=== PATIENT | male | born 1970 | race Caucasian/White ===

== ENCOUNTER 2022-07-16 15:17 | Emergency (ER) | payer OTHER ==
[~2022-07-16] VITALS: Ht 175.3 cm; Wt 97.5 kg
--- OUTSIDE RECORDS SUMMARY | 2022-07-16 15:31 | XMS ---
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 E.D. VISIT COUNT ([address] [facility] 1 [facility] [place] [facility]. TOTAL 4 NOTE: Visits indicate total known visits. ED/UCC VISIT TRACKING (12 MO.) 07/16/2022 15:20 [facility] TYPE: Emergency COMPLAINT: - LT LEG PAIN 04/18/2022 16:59 [facility] [place] TYPE: Emergency DIAGNOSES: - Back pain - Strain of muscle and tendon of back wall of thorax, initial encounter 02/12/2022 11:20 [facility] TYPE: Emergency DIAGNOSES: - Flue like symptoms, - Flu Symptoms - Flue like symptoms, Covid test request - Nicotine dependence, other tobacco product, uncomplicated - COVID-19 10/05/2021 14:37 [facility] - [facility] TYPE: Emergency DIAGNOSES: - Carpal tunnel syndrome, right upper limb - Wrist Injury - Wrist Pain INPATIENT VISIT TRACKING (12 MO.) No inpatient visits to display in this time frame [email or web address]
== END 2022-07-16 21:27 | disposition home or self-care (01) ==
LOC: ED 15:17
DX: S83.92XA Sprain of unspecified site of left knee, initial encounter (principal); S09.93XA Unspecified injury of face, initial encounter; W00.0XXA Fall on same level due to ice and snow, initial encounter
CPT/HCPCS: 70486; 73560; 99284-25